=== PATIENT | female | born 1945 | race African-American/Black ===

== ENCOUNTER 2018-11-16 11:16 | Emergency (ER) | payer OTHER ==
[2018-11-16 11:33] VITALS: BP 137/63; PULSE 88; TEMP 97.9; BMI 25.8
[2018-11-16] MEDS ORDERED: IBUPROFEN 600 MG TABLET (FP) PO ONE ×2 (11:48→11:56)
--- NOTE | 2018-11-16 11:56 | PDOC ---
History of Present Illness - General Chief Complaint: Injury Stated Complaint: FELL ON THE STEPS Time Seen by Provider: 11/16/18 11:25 History Source: Patient Exam Limitations: No Limitations Past History - Past Medical History Allergies/Adverse Reactions: Allergies Allergy/AdvReac Type Severity Reaction Status Date / Time quinine Allergy Verified 11/16/18 11:21 Home Medications: Ambulatory Orders Lisinopril [Prinivil] 20 mg PO DAILY 10/30/14 metFORMIN HCL [Glucophage -] 500 mg PO BID 10/30/14 Aspirin 81 mg PO DAILY 11/16/18 Sitagliptin Phosphate [Januvia -] mg PO DAILY@0700 11/16/18 Diabetes: Yes HTN: Yes - Suicide/Smoking/Psychosocial Hx Smoking Status: No Smoking History: Former smoker Years of Tobacco Use: 0 Have you smoked in the past 12 months: No Number of Cigarettes Smoked Daily: 0 Cigars Per Day: 0 Information on smoking cessation initiated: No Hx Alcohol Use: No Substance Use Type: None *Physical Exam - Vital Signs Last Vital Signs Temp Pulse Resp BP Pulse Ox 97.9 F 88 16 137/63 100 11/16/18 11:23 11/16/18 11:23 11/16/18 11:23 11/16/18 11:23 11/16/18 11:23 - Physical Exam General Appearance: No: Apparent Distress HEENT: positive: Other (no head trauma) Neck: positive: Supple. negative: Rigid, Rigidity, Tender lateral, Tender midline Respiratory/Chest: positive: Lungs Clear, Normal Breath Sounds. negative: Respiratory Distress Cardiovascular: positive: Regular Rhythm, Regular Rate, S1, S2. negative: Murmur Gastrointestinal/Abdominal: positive: Normal Bowel Sounds, Soft. negative: Tender, Distended, Guarding, Rebound Musculoskeletal: positive: Other (Mild TTP along L patella and slight pain with extension of L knee; no joint laxity, no ecchymosis, no deformity; R knee unremarkable; FROM of B/L hips, mild TTP along posterior aspect of R heel, FROM of R ankle and foot with no deformity or swelling noted). negative: Vertebral Tenderness Extremity: positive: Normal Inspection. negative: Swelling Integumentary: negative: Swelling, Ecchymosis, Bruising Neurologic: positive: Fully Oriented, Alert, Normal Mood/Affect ED Treatment Course - RADIOLOGY Radiology Studies Ordered: Category Date Time Status FOOT-RIGHT [RAD] Stat Radiology 11/16/18 11:48 Ordered HIP & PELVIS-LEFT [RAD] Stat Radiology 11/16/18 11:48 Ordered HIP & PELVIS-RIGHT [RAD] Stat Radiology 11/16/18 11:48 Ordered KNEE 4 POS-LEFT [RAD] Stat Radiology 11/16/18 11:48 Ordered KNEE 4 POS-RIGHT [RAD] Stat Radiology 11/16/18 11:48 Ordered Medical Decision Making - Medical Decision Making 73 y/o F with hx of HTN, DM, R knee replacement presents s/p fall 6 days ago. Patient states she missed a step while going down the stairs and fell down 2 steps, landing face forward. Is having most of pain along B/L knees (L>R), mild B/L hip pain and R heel pain. Mentions she also has R heel spur and is undergoing physical therapy for this. Patient had cane at home and was using that to ambulate around. Was taking Tylenol at home for pain. Denies head/neck trauma, LOC, sob, cp, abd pain, n/v, numbness/weakness. R/O fracture Plan: Xrays, Motrin 11/16/18 11:51 Xrays - no evidence of fracture Patient able to ambulate around Stable for dc 11/16/18 12:23 *DC/Admit/Observation/Transfer Diagnosis at time of Disposition: Fall Qualifiers: Encounter type: initial encounter Qualified Code(s): W19.XXXA - Unspecified fall, initial encounter - Discharge Dispostion Disposition: HOME Condition at time of disposition: Stable Decision to Admit order: No - Referrals Referrals: Cody Colmenares MD [Primary Care Provider] - 2 Days Javier Cao MD [Staff Physician] - 2 Days - Patient Instructions Additional Instructions: Thank you for choosing [facility]. It was a pleasure taking care of you. There were no evidence of fractures on your xray You were referred to orthopedic doctor for further evaluation Return to the Emergency Department if your symptoms worsen or persist or have other concerning symptoms. - Post Discharge Activity
== END 2018-11-16 12:33 | disposition home or self-care (01) ==
LOC: JERFT 11:16
DX: M25.562 Pain in left knee (principal); M25.561 Pain in right knee; M25.551 Pain in right hip; M25.552 Pain in left hip; M79.671 Pain in right foot; W10.8XXA Fall (on) (from) other stairs and steps, initial encounter; Y93.89 Activity, other specified; Y92.89 Other specified places as the place of occurrence of the external cause; Y99.8 Other external cause status; I10 Essential (primary) hypertension; E11.9 Type 2 diabetes mellitus without complications; Z79.84 Long term (current) use of oral hypoglycemic drugs; Z96.651 Presence of right artificial knee joint; Z99.89 Dependence on other enabling machines and devices
CPT/HCPCS: 73523-TC-FY; 73564-TC-LT-FY; 73564-TC-RT-FY; 73630-TC-RT-FY; 99281-25

== ENCOUNTER 2021-03-26 13:11 | Emergency (ER) | payer OTHER ==
[2021-03-26 13:18] VITALS: BP 152/66; PULSE 88; TEMP 97; BMI 34.2
== END 2021-03-26 15:15 | disposition home or self-care (01) ==
LOC: JER 13:11
DX: M19.011 Primary osteoarthritis, right shoulder (principal)
CPT/HCPCS: 73030-TC-RT-FY; 99283-25